=== PATIENT | male | born 1935 | race Caucasian/White ===

== ENCOUNTER 2019-12-11 21:00 | Emergency (ER) | payer OTHER ==
[~2019-12-11] VITALS: Ht 177.8 cm; Wt 74.4 kg
[2019-12-11 21:05] VITALS: BP_SYST 160
--- NOTE | 2019-12-11 22:01 | NUR ---
Patient to ER bed 5 to gown for evaluation. Side rails up. Report given to ORLANDO CORTÉS.
--- NOTE | 2019-12-11 22:19 | NUR ---
PT A&O X4 FROM HOME C/O OF RECTAL PAIN 08/15 FROM HEMORRHOIDS. PT REPORTS EXPERIENCING THIS PAIN FOR ABOUT 3-4 WEEKS BUT HAS BEEN GETTING WORSE. PT DESCRIBES HIS PAIN AT ACHING AND THROBBING, BEEN LOSING SLEEP BECAUSE OF IT. PT STATES HES TAKEN A TOTAL OF 7-8 TYLENOL 250MG TODAY, LAST DOSE 2-3 HOURS AGO. PT DENIES CONSTIPATION.
--- NOTE | 2019-12-11 22:34 | NUR ---
ER Dr. SMITH at bedside examining patient.
[2019-12-11 23:04] VITALS: BP_SYST 142
--- NOTE | 2019-12-11 23:04 | NUR ---
Patient given written and verbal discharge instructions and verbalizes understanding. ER MD discussed with patient the results and treatment provided. Patient in stable condition. ID arm band removed. Rx of LIDOCAINE VISCOUS AND ANUSOL given. Patient educated on pain management and to follow up with PMD. Pain Scale 5/10. Opportunity for questions provided and answered. Medication side effect fact sheet provided.
== END 2019-12-11 23:04 | disposition home or self-care (01) ==
LOC: SED 21:00
DX: K62.89 Other specified diseases of anus and rectum (principal); K64.5 Perianal venous thrombosis; I10 Essential (primary) hypertension; E78.5 Hyperlipidemia, unspecified; Z79.899 Other long term (current) drug therapy
CPT/HCPCS: 99283

== ENCOUNTER 2019-12-14 07:01 | Emergency (ER) | payer OTHER ==
[~2019-12-14] VITALS: Ht 177.8 cm; Wt 74.8 kg
[2019-12-14 07:01] VITALS: BP_SYST 159
[2019-12-14 07:56] VITALS: BP_SYST 159
[2019-12-14 08:10] LABS: BASOPHILS # (AUTO) 0.1 K/uL (0.0-0.2); BASOPHILS % (AUTO) 1.2 % (0.0-2.0); EOSINOPHILS # (AUTO) 0.2 K/uL (0.0-0.4); EOSINOPHILS % (AUTO) 2.8 % (0.0-4.0); HEMATOCRIT 37.2 % (36-54); HEMOGLOBIN 12.5 g/dL (14.0-18.0); LYMPHOCYTES # (AUTO) 0.7 K/uL (1.0-5.5); LYMPHOCYTES % (AUTO) 11.9 % (20.5-51.5); MEAN CORPUSCULAR HEMOGLOBIN 29 pg (27-31); MEAN CORPUSCULAR HGB CONC 34 % (32-36); MEAN CORPUSCULAR VOLUME 86 fL (79.0-98.0); MONOCYTES # (AUTO) 0.6 K/uL (0.0-1.0); MONOCYTES % (AUTO) 9.8 % (1.7-9.3); NEUTROPHILS # (AUTO) 4.4 K/uL (1.8-7.7); NEUTROPHILS % (AUTO) 74.3 % (40.0-70.0); PLATELET COUNT (AUTO) 191 K/uL (130-430); RED BLOOD CELL COUNT(AUTO) 4.33 MIL/uL (4.2-6.2); RED CELL DISTRIBUTION WIDTH 15.9 % (9.0-15.0); WHITE BLOOD COUNT (AUTO) 5.9 K/uL (4.8-10.8)
[2019-12-14 08:13] LABS: ANION GAP 11 (5-15); CALCIUM 8.6 mg/dL (8.4-11.0); CHLORIDE 103 mmol/L (98-107); CREATININE 1.09 mg/dL (0.55-1.30); GLUCOSE 97 mg/dL (70-99); POTASSIUM 4.2 mmol/L (3.5-5.1); SODIUM SERUM 139 mmol/L (136-145); UREA NITROGEN, BLOOD 17 mg/dL (8-21)
[2019-12-14 08:18] LABS: INR 1.1 (0.80-1.20)
[2019-12-14 08:19] LABS: ALANINE AMINOTRANSFERASE 20 U/L (12-78); ALBUMIN 3.6 g/dL (3.4-4.8); ASPARTATE AMINOTRANSFERASE 22 U/L (10-37); TOTAL BILIRUBIN 0.7 mg/dL (0.0-1.0)
== END 2019-12-14 08:55 | disposition home or self-care (01) ==
LOC: SED 07:01
DX: K64.4 Residual hemorrhoidal skin tags (principal)
CPT/HCPCS: 36415; 80053; 85025; 85610-TC; 85730-TC; 99283

== ENCOUNTER 2022-04-19 15:35 | Emergency (ER) | payer OTHER ==
[~2022-04-19] VITALS: Ht 177.8 cm; Wt 72.6 kg
[2022-04-19 15:42] VITALS: BP_SYST 183
--- NOTE | 2022-04-19 15:48 | NUR ---
Patient triaged and placed in waiting room. VSS and patient appears in no acute distress at this time. Accompanied by grandson, awaiting available bed, and MD notified of need for MSE.
--- NOTE | 2022-04-19 19:05 | NUR ---
Patient to ER CHAIR for evaluation.
--- NOTE | 2022-04-19 19:40 | NUR ---
Dr. Armando at bedside examining the patient.
[2022-04-19] MEDS ORDERED: LIDOCAINE 1%, 20 ML MDV 20 ML ONE (22:06)
--- NOTE | 2022-04-19 22:17 | NUR ---
Dr. Armando at bedside for a laceration repair.
[2022-04-19] MEDS ORDERED: ACETAMINOPHEN 325 MG TABLET PO ONE (22:30)
[2022-04-19] MEDS ORDERED: DIPHTH,PERTUSS(ACELL),TET VAC 0.5 ML VIAL (Tdap) I.M. ONE (22:30)
[2022-04-19] MEDS ORDERED: BACITRACIN 1 GM OINT TP ONE (22:30)
[2022-04-19] MEDS ORDERED: DICL20GE TP (22:31)
[2022-04-19] MEDS ORDERED: BACI15OI13 TP (22:31)
[2022-04-19] MEDS ORDERED: ACET325T PO (22:31)
[2022-04-19 22:44] VITALS: BP_SYST 106
--- NOTE | 2022-04-19 22:45 | NUR ---
Patient given written and verbal discharge instructions and verbalizes understanding. ER MD discussed with patient the results and treatment provided. Patient in stable condition. ID arm band removed. Rx of ACETAMINOPHEN, BACITRACIN, DICLOFENAC SODIUM given. Patient educated on pain management and to follow up with PMD. Pain Scale 0/10. Opportunity for questions provided and answered. Medication side effect fact sheet provided.
== END 2022-04-19 22:44 | disposition home or self-care (01) ==
LOC: SED 15:35
DX: S01.111A Laceration without foreign body of right eyelid and periocular area, initial encounter (principal); I10 Essential (primary) hypertension; Z79.899 Other long term (current) drug therapy; W22.09XA Striking against other stationary object, initial encounter; Y93.89 Activity, other specified; Y92.89 Other specified places as the place of occurrence of the external cause; Y99.8 Other external cause status
CPT/HCPCS: 99285; 70450; 76376; 90715; 90471; 12013; J2001